=== PATIENT | male | born 2000 | race Two or more races ===

== ENCOUNTER 2019-01-02 15:13 | Emergency (ER) | payer SELFPAY ==
[2019-01-02] MEDS ORDERED: MECLIZINE HCL 25 MG TABLET PO ONE (16:03)
[2019-01-02] MEDS ORDERED: ACETAMINOPHEN 325 MG TABLET PO ONE (16:03)
--- NOTE | 2019-01-02 16:06 | ER Document Report ---
ED Medical Screen (RME) - General Chief Complaint: Dizziness Stated Complaint: DIZZY Time Seen by Provider: 01/02/19 16:02 Notes: Patient is a 18-year-old male with no prior medical history presents the emergency department with a chief complaint of dizziness. He had an episode of dizziness just prior to arrival when he was up in the attic. His aunt is at bedside with him. The patient states that he also had an episode of dizziness 3 days ago when he was outside. He denies any loss of consciousness or hitting his head. Patient states that he stays well-hydrated. He is not currently taking any medications. Exam: Alert and oriented. Upper and lower extremities 5/5 strength. I have greeted and performed a rapid initial assessment of this patient. A comprehensive ED assessment and evaluation of the patient, analysis of test re sults and completion of medical decision making process will be conducted by an additional ED providers. - Related Data Allergies/Adverse Reactions: No Known Allergies Allergy (Verified 01/02/19 15:20) Physical Exam - Vital signs Vitals: Temp Pulse Resp BP Pulse Ox 98.7 F 90 18 115/77 99 01/02/19 15:21 01/02/19 15:21 01/02/19 15:21 01/02/19 15:21 01/02/19 15:21 Course - Vital Signs Vital signs: Temp Pulse Resp BP Pulse Ox 98.7 F 90 18 115/77 99 01/02/19 15:21 01/02/19 15:21 01/02/19 15:21 01/02/19 15:21 01/02/19 15:21
[2019-01-02 16:51] LABS: ABSOLUTE BASOPHILS # (AUTO) 0.1 10^3/uL (0.0-0.2); ABSOLUTE EOSINOPHILS # (AUTO) 0.1 10^3/uL (0.0-0.6); ABSOLUTE LYMPHOCYTES (AUTO) 2.4 10^3/uL (0.5-4.7); ABSOLUTE MONOCYTES (AUTO) 0.7 10^3/uL (0.1-1.4); ABSOLUTE NEUT (AUTO) 7.1 10^3/uL (1.7-8.2); BASOPHILS % (AUTO) 0.6 % (0-2); EOSINOPHILS % (AUTO) 0.6 % (0-6); HEMATOCRIT 47.2 % (37.9-51.0); HEMOGLOBIN 16.6 g/dL (13.5-17.0); LYMPHOCYTES % (AUTO) 23.3 % (13-45); MEAN CORPUSCULAR HEMOGLOBIN 30.9 pg (27.0-33.4); MEAN CORPUSCULAR HGB CONC 35.3 g/dL (32.0-36.0); MEAN CORPUSCULAR VOLUME 88 fl (80-97); MONOCYTES % (AUTO) 7.2 % (3-13); PLATELET COUNT 401 10^3/uL (150-450); RED BLOOD COUNT 5.37 10^6/uL (4.35-5.55); RED CELL DISTRIBUTION WIDTH 12.6 % (11.5-14.0); SEGMENTED NEUTROPHILS % (AUTO) 68.3 % (42-78); TOTAL CELLS COUNTED % (AUTO) 100 %; WHITE BLOOD COUNT 10.4 10^3/uL (4.0-10.5)
[2019-01-02 17:20] LABS: ALBUMIN 5.8 g/dL (3.7-5.6); ALKALINE PHOSPHATASE 106 U/L (65-260); ANION GAP 17 (5-19); ASPARTATE AMINO TRANSFERASE 24 U/L (10-45); BILIRUBIN,DIRECT 0.4 mg/dL (0.0-0.4); BILIRUBIN,TOTAL 0.6 mg/dL (0.2-1.3); BLOOD UREA NITROGEN 15 mg/dL (7-20); CALCIUM 11.1 mg/dL (8.4-10.2); CARBON DIOXIDE 27 mmol/L (22-30); CHLORIDE 98 mmol/L (98-107); GLUCOSE 99 mg/dL (75-110); POTASSIUM 4.1 mmol/L (3.6-5.0); TOTAL PROTEIN 9.9 g/dL (6.3-8.2)
--- NOTE | 2019-01-02 19:09 | ER Document Report ---
ED Dizziness/Weakness - General Chief Complaint: Dizziness Stated Complaint: DIZZY Time Seen by Provider: 01/02/19 16:02 Mode of Arrival: Ambulatory Information source: Patient - HPI Notes: Patient states that he became dizzy today and felt like he was going to pass out. He states he was working in an attic when this happened. He states he feels back to normal now. This episode lasted approximately 30 minutes. He was very sweaty at the time. Symptoms are made better by rest worse by exertion. There were moderate in severity. No known radiation symptoms. They were co nstant when they lasted. He did have one similar episode about a week ago. He denies any chronic medical problems or previous surgeries. He denies any type of illicit drug use. - Related Data Allergies/Adverse Reactions: No Known Allergies Allergy (Verified 01/02/19 15:20) Past Medical History - General Information source: Patient - Social History Smoking Status: Never Smoker Frequency of alcohol use: None Drug Abuse: None Family History: Reviewed & Not Pertinent - Past Medical History Cardiac Medical History: Denies: Hx Congestive Heart Failure, Hx Heart Attack Pulmonary Medical History: Denies: Hx Asthma, Hx Bronchitis, Hx COPD Review of Systems - Review of Systems Constitutional: Malaise, Weakness. denies: Chills, Fever Cardiovascular: denies: Chest pain, Dyspnea Respiratory: denies: Cough, Short of breath -: Yes All other systems reviewed and negative Physical Exam - Vital signs Vitals: Temp Pulse Resp BP Pulse Ox 98.7 F 90 18 115/77 99 01/02/19 15:21 01/02/19 15:21 01/02/19 15:21 01/02/19 15:21 01/02/19 15:21 Interpretation: Normal - General General appearance: Appears well, Alert - HEENT Head: Normocephalic, Atraumatic Eyes: Normal Pupils: PERRL - Respiratory Respiratory status: No respiratory distress Chest status: Nontender Breath sounds: Normal Chest palpation: Normal - Cardiovascular Rhythm: Regular Heart sounds: Normal auscultation Murmur: No - Abdominal Inspection: Normal Distension: No distension Bowel sounds: Normal Tenderness: Nontender Organomegaly: No organomegaly - Back Back: Normal, Nontender - Extremities General upper extremity: Normal inspection, Nontender, Normal color, Normal ROM, Normal temperature General lower extremity: Normal inspection, Nontender, Normal color, Normal ROM, Normal temperature, Normal weight bearing. No: Mary's sign - Neurological Neuro grossly intact: Yes Cognition: Normal Orientation: AAOx4 Sabael Coma Scale Eye Opening: Spontaneous Sabael Coma Scale Verbal: Oriented [place] Coma Scale Motor: Obeys Commands [place] Coma Scale Total: 15 Speech: Normal Motor strength normal: LUE, RUE, LLE, RLE Sensory: Normal - Psychological Associated symptoms: Normal affect, Normal mood - Skin Skin Temperature: Warm Skin Moisture: Dry Skin Color: Normal Course - Vital Signs Vital signs: Temp Pulse Resp BP Pulse Ox 98.7 F 90 18 115/77 99 01/02/19 15:21 01/02/19 15:21 01/02/19 15:21 01/02/19 15:21 01/02/19 15:21 - Laboratory Result Diagrams: 01/02/19 16:17 01/02/19 16:17 Laboratory results interpreted by me: 01/02/19 16:17 Calcium 11.1 H Total Protein 9.9 H Albumin 5.8 H - EKG Interpretation by Ri EKG shows normal: Sinus rhythm Rate: Normal - 79 Rhythm: NSR [place]/QRS: No: Right axis deviation, Left axis deviation Discharge - Discharge Clinical Impression: Dizziness Condition: Stable Disposition: HOME, SELF-CARE Instructions: Dizziness ([facility]) Additional Instructions: Please make sure you do not stay for long periods of time and attics or hot areas with no ventilation. Please make sure you stay well-hydrated.
[2019-01-02 19:21] VITALS: BP 116/58
--- NOTE | 2019-01-02 20:41 | EKG REPORT ---
SEVERITY:- NORMAL ECG - SINUS RHYTHM : Confirmed by: Gisele Lawton MD 02-Jan-2019 20:41:31
== END 2019-01-02 19:29 | disposition home or self-care (01) ==
LOC: ER 15:13
DX: R42 Dizziness and giddiness (principal); R53.1 Weakness; R53.81 Other malaise
CPT/HCPCS: 36415; 80053; 85025; 93005; 93010; 99284